=== PATIENT | female | born 1990 | race Caucasian/White ===

== ENCOUNTER 2021-07-25 22:55 | Emergency (ER) | payer OTHER, BC ==
[2021-07-25 23:07] VITALS: RESP 18
[2021-07-26] MEDS: ACETAMINOPHEN TAB 500 MG TAB PO STA (02:13)
[2021-07-26] MEDS: predniSONE 50 MG TAB PO STA (02:14)
[2021-07-26] MEDS: KETOROLAC 15 MG/ML 1 ML VIAL IM STA (02:32)
--- NOTE | 2021-07-26 02:40 | XR ---
EXAMINATION TYPE: XR chest 2V DATE OF EXAM: 07/26/2021 COMPARISON: NONE HISTORY: Cough. Chest pain TECHNIQUE: 2 views FINDINGS: Heart and mediastinum are normal. Lungs are clear. Diaphragm is normal. Bony thorax is inta ct. IMPRESSION: Normal chest.
--- NOTE | 2021-07-26 03:06 | ED ---
General Adult HPI - General Chief complaint: Chest Pain Stated complaint: Chest Pain, MELANIE Time Seen by Provider: 07/26/21 01:56 Source: patient, family Mode of arrival: wheelchair Limitations: no limitations - History of Present Illness Initial comments: 30 year-old female patient presents for chest pain. States for the last two days she has had nasal congestion, cough, and sore throat. States today she developed pressure in her chest. Denies taking anything for her symptoms. She was seen at urgent care today and tested negative for COVID. States they gave her z-eladio for bronchitis. She has not yet started this. She denies any leg pain or swelling. Denies shortness of breath. Denies increased pain with deep inspiration. She denies chance of . She has not been vaccinated for flu or covid. - Related Data Previous Rx's Medication Instructions Recorded Albuterol Sulfate [Proair Hfa] 1 - 2 puff INHALATION Q6HR PRN 07/26/21 #8.5 gm guaiFENesin-DM 600/30MG [Mucinex 2 each PO Q12HR PRN #20 tab 07/26/21 Dm] predniSONE 50 mg PO DAILY #5 tablet 07/26/21 Allergies Allergy/AdvReac Type Severity Reaction Status Date / Time No Known Allergies Allergy Verified 07/25/21 23:04 Review of Systems ROS Statement: Those systems with pertinent positive or pertinent negative responses have been documented in the HPI. ROS Other: All systems not noted in ROS Statement are negative. Past Medical History Past Medical History: No Reported History History of Any Multi-Drug Resistant Organisms: None Reported Past Surgical History: No Surgical Hx Reported Past Psychological History: Anxiety Smoking Status: Never smoker Past Alcohol Use History: None Reported Past Drug Use History: None Reported General Exam Limitations: no limitations General appearance: alert, in no apparent distress, other (This is a well- developed, well-nourished adult female in no acute distress.) ENT exam: Present: normal exam, normal oropharynx, mucous membranes moist Respiratory exam: Present: normal lung sounds bilaterally. Absent: respiratory distress, wheezes, rales, rhonchi, stridor Cardiovascular Exam: Present: normal rhythm, tachycardia, normal heart sounds. Absent: systolic murmur, diastolic murmur, rubs, gallop, clicks GI/Abdominal exam: Present: soft, normal bowel sounds. Absent: distended, tenderness, guarding, rebound, rigid Neurological exam: Present: alert, oriented X3, CN II-XII intact Psychiatric exam: Present: normal affect, normal mood Skin exam: Present: warm, dry, intact, normal color. Absent: rash Course Vital Signs 07/25/21 23:05 Temperature 99.0 F Pulse Rate 111 H Respiratory 18 Rate Blood Pressure 133/81 O2 Sat by Pulse 99 Oximetry EKG Findings - EKG Comments: EKG Findings:: EKG obtained at 2311 shows normal sinus rhythm with a ventricular rate of 98, DC interval 166, QRS duration 86, QT 336, QTC 428. No evidence of ST elevation or depression. Medical Decision Making - Medical Decision Making 30-year-old female patient presents to the emergency department today for evaluation of cough, congestion, chest pressure. Physical examination revealed clear equal lung sounds. She tested negative for . Chest x-ray is negative. She did test positive for COVID. To be discharged home with prescription for pro-air, Mucinex, and prednisone. She is given instructions for symptom management and supportive care at home. She is instructed to follow-up with the primary care physician for recheck in 1-2 days. Return parameters were discussed in detail. She verbalizes understanding and agrees with this plan. My attending is Dr. Stiles. - Lab Data Lab Results 07/26/21 07/26/21 Range/Units 02:04 02:16 Urine HCG, Qual Not Detected (Not Detectd) Influenza Type A (PCR) Not Detected (Not Detectd) Influenza Type B (PCR) Not Detected (Not Detectd) RSV (PCR) Not Detected (Not Detectd) SARS-CoV-2 (PCR) Detected A (Not Detectd) - Radiology Data Radiology results: report reviewed, image reviewed Two-view x-ray of the chest is obtained. Report was reviewed in its entirety. Impression by Dr. Cabral shows normal chest. Disposition Clinical Impression: COVID-19 Disposition: HOME SELF-CARE Condition: Good Instructions (If sedation given, give patient instructions): Coronavirus Disease 2019 (COVID-19) Additional Instructions: Tips to help you feel better: -Maintain adequate fluid intake - especially water. -Rest, you are healing your body will require extra sleep. -Eat even if you do not feel like it - broth, jello, toast are fine if you cannot eat full meals. -Take tylenol and motrin alternating (if you have no allergies or have not been instructed to avoid these medications) to help with body aches and fevers. -Obtain over the counter vitamin C, zinc, and vitamin D3. -Take medications as prescribed. Follow-up with your primary care physician for recheck in 1-2 days. Return for any new, worsening, or concerning symptoms. Prescriptions: guaiFENesin-DM 600/30MG [Mucinex Dm] 2 each PO Q12HR PRN #20 tab PRN Reason: Cough predniSONE 50 mg PO DAILY #5 tablet Albuterol Sulfate [Proair Hfa] 1 - 2 puff INHALATION Q6HR PRN #8.5 gm PRN Reason: Shortness Of Breath Is patient prescribed a controlled substance at d/c from ED?: No Referrals: Linda Hernandez MD [Primary Care Provider] - 1-2 days Time of Disposition: 03:13
[2021-07-26 03:22] VITALS: BP 100/65; PULSE 78; TEMP 98.7
== END 2021-07-26 03:22 | disposition home or self-care (01) ==
LOC: EC 22:55
DX: U07.1 COVID-19 (principal)
CPT/HCPCS: 99285; 96372; 93005; 81025; 87636; 71046; J1885; J7512

== ENCOUNTER → 2021-08-20 | Outpatient (CLI) | payer BC ==
--- NOTE | 2021-08-20 23:30 | XR ---
EXAMINATION TYPE: XR chest 2V DATE OF EXAM: 08/20/2021 COMPARISON: 07/26/2021 HISTORY: 30-year-old female [id number], acute bronchitis. TECHNIQUE: Frontal and lateral views FINDINGS: The cardiomediastinal silhouette, aorta, and pulmonary vasculature are within normal limits. Lungs an d pleural spaces are clear. IMPRESSION: No acute cardiopulmonary process.
== END | disposition home or self-care (01) ==
LOC: RADXRYALE 15:11
PROVIDERS: ATTEND Internal Medicine
DX: J20.8 Acute bronchitis due to other specified organisms (principal)
CPT/HCPCS: 71046

== ENCOUNTER 2023-11-25 09:17 | Emergency (ER) | payer OTHER, BC ==
--- NOTE | 2023-11-25 10:04 | ED ---
General Adult HPI - General Chief complaint: Vaginal Bleeding Stated complaint: 9wks preg/bleeding Time Seen by Provider: 11/25/23 09:20 Source: patient, RN notes reviewed, old records reviewed Mode of arrival: ambulatory Limitations: no limitations - History of Present Illness Initial comments: This is a 33-year-old female who presents to the emergency department stating that she is 9 weeks 5 days and she had an IVF. Patient states she started bleeding about a week ago she saw her OB last week and they did an ultrasound and they saw a small bleed. Patient states that her OB told her to continue with less activity and follow-up if the bleeding gets heavier. Patient states the bleeding stopped and then restarted on Thursday but only a little but today she did soak through a pad it so she decided to come to the emergency department. Patient states she has an occasional cramp but she has had that all throughout her . Patient denies any fever or chills. Patient states they just waldemar blood work last week and she has a positive. Patient denies any fever chills patient denies any other problems. - Related Data Previous Rx's Medication Instructions Recorded Albuterol Sulfate [Proair Hfa] 1 - 2 puff INHALATION Q6HR PRN 07/26/21 #8.5 gm guaiFENesin-DM 600/30MG [Mucinex 2 each PO Q12HR PRN #20 tab 07/26/21 Dm] predniSONE 50 mg PO DAILY #5 tablet 07/26/21 Allergies Allergy/AdvReac Type Severity Reaction Status Date / Time No Known Allergies Allergy Verified 11/25/23 09:21 Review of Systems ROS Statement: Those systems with pertinent positive or pertinent negative responses have been documented in the HPI. ROS Other: All systems not noted in ROS Statement are negative. Past Medical History Past Medical History: No Reported History History of Any Multi-Drug Resistant Organisms: None Reported Past Surgical History: No Surgical Hx Reported Past Psychological History: Anxiety Smoking Status: Never smoker Past Alcohol Use History: None Reported Past Drug Use History: None Reported General Exam - General Exam Comments Initial Comments: GENERAL: Patient is well-developed and well-nourished. Patient is nontoxic and well- hydrated and is in no acute distress. ENT: Neck is soft and supple. No significant lymphadenopathy is noted. Oropharynx is clear. Moist mucous membranes. EYES: Extraocular movements were intact and pupils were equal round and reactive to light. Eyelids were unremarkable. ABDOMEN: Soft and nontender with normal bowel sounds. SKIN: Skin is clear with no lesions or rashes and otherwise unremarkable. NEUROLOGIC: Patient is alert and oriented x3. Cranial nerves II through XII are grossly intact. Motor and sensory are also intact. Normal speech, volume and content. Symmetrical smile. MUSCULOSKELETAL: Normal extremities with adequate strength and full range of motion. PSYCHIATRIC: Normal psychiatric evaluation. Limitations: no limitations Course Vital Signs 11/25/23 09:17 Temperature 97.8 F Pulse Rate 84 Respiratory 16 Rate Blood Pressure 157/105 O2 Sat by Pulse 100 Oximetry Medical Decision Making - Medical Decision Making Was pt. sent in by a medical professional or institution (, PA, HELPER MARBLE FINISHER, urgent care, hospital, or usp...) When possible be specific @ -No Did you speak to anyone other than the patient for history (EMS, parent, family, police, friend...)? What history was obtained from this source @ -No Did you review nursing and triage notes (agree or disagree)? Why? @ -I reviewed and agree with nursing and triage notes Were old charts reviewed (outside hosp., previous admission, EMS record, old EKG, old radiological studies, urgent care reports/EKG's, usp records)? Report findings @ -No old charts were reviewed Differential Diagnosis (chest pain, altered mental status, abdominal pain women, abdominal pain men, vaginal bleeding, weakness, fever, dyspnea, syncope, headache, dizziness, GI bleed, back pain, seizure, CVA, palpatations, mental health, musculoskeletal)? @ -Threatened , miscarriage, incomplete miscarriage, chronic hemorrhage, this is not an all-inclusive list EKG interpreted by me (3pts min.). @ -As above X-rays interpreted by me (1pt min.). @ -None done CT interpreted by me (1pt min.). @ -None done U/S interpreted by me (1pt. min.). @ -Ultrasound shows a 9-week 4-day gestational with a subchorionic hemorrhage. Heart rate is 167 What testing was considered but not performed or refused? (CT, X-rays, U/S, labs)? Why? @ -None What meds were considered but not given or refused? Why? @ -None Did you discuss the management of the patient with other professionals (professionals i.e. , PA, HELPER MARBLE FINISHER, lab, RT, psych nurse, social media job titles, nut picker, teacher, court registry officer, case planner)? Give summary @ -No Was smoking cessation discussed for >3mins.? @ -No Was critical care preformed (if so, how long)? @ -No Were there social determinants of health that impacted care today? How? (Homelessness, low income, unemployed, alcoholism, drug addiction, transportation, low edu. Level, literacy, decrease access to med. care, prison, rehab)? @ -No Was there de-escalation of care discussed even if they declined (Discuss DNR or withdrawal of care, Hospice)? DNR status @ -No What co-morbidities impacted this encounter? (DM, HTN, Smoking, COPD, CAD, Cancer, CVA, ARF, Chemo, Hep., AIDS, mental health diagnosis, sleep apnea, morbi d obesity)? @ -None Was patient admitted / discharged? Hospital course, mention meds given and route, prescriptions, significant lab abnormalities, going to OR and other pertinent info. @ -Patient's ultrasound showed intrauterine 9 weeks 4 days there was also subchorionic hemorrhage. Patient will be instructed to follow-up today with her ROLLER SKATE ASSEMBLER. Undiagnosed new problem with uncertain prognosis? @ -No Drug Therapy requiring intensive monitoring for toxicity (Heparin, Nitro, Insulin, Cardizem)? @ -No Were any procedures done? @ -No Diagnosis/symptom? @ -Threatened Acute, or Chronic, or Acute on Chronic? @ -Acute Uncomplicated (without systemic symptoms) or Complicated (systemic symptoms)? @ -Complicated Side effects of treatment? @ -No Exacerbation, Progression, or Severe Exacerbation? @ -No Poses a threat to life or bodily function? How? (Chest pain, USA, MS, pneumonia, PE, COPD, DKA, ARF, appy, cholecystitis, CVA, Diverticulitis, Homicidal, Suicidal, threat to staff... and all critical care pts) @ -No Disposition Clinical Impression: Threatened Disposition: HOME SELF-CARE Condition: Good Additional Instructions: Call your ROLLER SKATE ASSEMBLER today and let him know that you are having some bleeding and you were seen in our emergency department. Is patient prescribed a controlled substance at d/c from ED?: No Referrals: Linda Hernandez MD [Primary Care Provider] - 1-2 days Time of Disposition: 11:21
[2023-11-25 10:42] VITALS: TEMP 97.8
--- NOTE | 2023-11-25 11:07 | US ---
EXAMINATION TYPE: Transabdominal DATE OF EXAM: 11/25/2023 10:43 AM COMPARISON: NONE CLINICAL INDICATION: Female, 33 years old with history of IVF, vaginal bleeding; IVF patient. Patient states they found a bleed on prior scan. Patient has been having dark red bleeding. Hx LEEP procedur e. . EXAM PERFORMED: Transvaginal (TV) and Transabdominal (TA) EXAM MEASUREMENTS: GESTATIONAL AGE / DATING Physician Established: (9 weeks/4 days) EDC: 06/25/2024 Dates by LMP: Unknown per patient Dates by First Scan: This is first scan at this facility Dates by Current Scan for: (9 weeks/4 days) EDC: 06/25/2024 MATERNAL ANATOMY Uterus: 12.5 x 8.0 x 6.4 cm Right Ovary: 2.8 x 1.7 x 1.6 cm Left Ovary: Not seen Post CDS / Adnexa: Free fluid seen right adnexa. Presence of free fluid: Yes in right adnexa* Presence of corpus luteal cyst: Not seen Presence of subchorionic bleed: 2 complex areas seen adjacent to the gestational sac, fundal area M easures: 1.4 x 1.7 x 2.6 cm. KENNY area measures: 1.4 x 1.5 x 1.0 cm. GESTATION / SURVEY CRL: 2.78 cm (9 weeks/4 days) Yolk Sac (normal less than 6mm): 3.8 mm Heart Rate: 167 bpm Rhythm: Normal IUP: Viable IUP Date of LMP: Unknown Beta HcG (if available): Not available IMPRESSION: 1. Single live intrauterine gestation with 9 weeks 4 days. 2. Small subchorionic hemorrhages.
[2023-11-25 12:29] VITALS: BP 120/64; PULSE 88; RESP 18
== END 2023-11-25 11:46 | disposition home or self-care (01) ==
LOC: EC 09:17
DX: O20.0 Threatened abortion (principal); Z3A.09 9 weeks gestation of pregnancy
CPT/HCPCS: 76801; 76817; 99284

== ENCOUNTER 2024-04-27 09:52 | Outpatient (CLI) | payer OTHER, BC ==
[2024-04-27 11:06] LABS: Appearance,Urine Cloudy (Clear); Bilirubin,Urine Negative (Negative); Blood,Urine Small (Negative); Color,Urine Light Yellow; Glucose,Urine (UA) Negative (Negative); Ketones,Urine Negative (Negative); Leukocyte Esterase,Urine Moderate (Negative); Mucus,Urine Occasional /hpf; Nitrite,Urine Negative (Negative); PH, Urine 6.5 (5.0-8.0); Protein,Urine Trace (Negative); RBC,Urine 47 /hpf (0-5); Specific Gravity,Urine 1.017 (1.001-1.035); Squamous Epithelial Cell,Urine 6 /hpf (0-4); Urobilinogen,Urine <2.0 mg/dL (<2.0); WBC,Urine 14 /hpf (0-5)
[2024-04-27] MEDS: ACETAMINOPHEN IV (For NPO) 1,000 MG in EMPTY BAG 1 BAG IVPB STA (11:38)
[2024-04-27] MEDS: LACTATED RINGERS 1,000 ML IV ONE (11:38)
[2024-04-27 12:39] VITALS: BP 121/81; PULSE 110; RESP 16; TEMP 97.5
--- NOTE | 2024-05-05 09:03 | P.MSEPDOC ---
Presenting Problems - Arrival Data Date of Arrival on Unit: 04/27/24 Time of Arrival on Unit: 09:52 Mode of Transport: Wheelchair - Complaint OB-Reason for Admission/Chief Complaint: Pain Comment: cramping and right side back pain, 10 on 0-10 scale Medical History - Information : 1 Para: 0 Term: 0 : 0 Abortions: Spontaneous or Elective: 0 Number of Living Children: 0 - Gestational Age Gestational Age by AISHA (wks/days): 31 Weeks and 4 Days - History Complications: Placenta Previa Comment: placenta previa resolved, hx kidney stone Review of Systems - Review of Systems Constitutional: No problems Breast: No problems ENT: No problems Cardiovascular: No problems Respiratory: No problems Gastrointestinal: No problems Genitourinary: No problems Musculoskeletal: No problems Neurological: No problems Skin: No problems Vital Signs - Temperature Temperature: 97.5 F Temperature Source: Temporal Artery Scan - Pulse Right Sitting Pulse Rate: 110 Pulse Assessment Method: Automatic Cuff - Respirations Respiratory Rate: 16 Oxygen Delivery Method: Room Air O2 Sat by Pulse Oximetry: 100 - Blood Pressure Right Arm Blood Pressure: 121/81 Blood Pressure Mean: 94 Blood Pressure Source: Automatic Cuff Medical Screen Scoring - Assessment - Baby A Baseline FHR: 135 Heart Rate - NICHD Category: Category I (Normal) NST: Reactive Physician Notification - Physician Notified Physician Notified Date: 04/27/24 Physician Notified Time: 12:20 Physician: Lona Tyler Order Received: Yes (d/c home) Maternal Triage Index - Non-Urgent/Priority 4 Non-Urgent Priority 4: Yes Criteria Met for Priority 4: reactive nst, occasional contraction not felt by pt, possible kideny stone Disposition - Disposition OB Disposition: Discharge to home Discharge Date: 04/27/24 Discharge Time: 12:30 I agree with the RN Medical Screening Exam: Yes Physician's MSE Comment: I have neither seen nor examined the patient Case reviewed; plan agreed upon as documented in EMR&OBIX.: Yes Diagnosis: RELATED CONDITIONS, UNSPECIFIED, THIRD TRIMESTER
== END 2024-04-27 12:30 | disposition home or self-care (01) ==
LOC: FBPOP 09:52
PROVIDERS: ATTEND Obstetrics & Gynecology
CPT/HCPCS: 59025; 81001; 87086; 96365; 99214

== ENCOUNTER 2024-04-27 20:38 | Outpatient (CLI) | payer OTHER, BC ==
[2024-04-27 21:01] VITALS: PULSE 105; RESP 20; TEMP 97.9
[2024-04-27 22:20] VITALS: BP 120/68
--- NOTE | 2024-05-05 09:03 | P.MSEPDOC ---
Presenting Problems - Arrival Data Date of Arrival on Unit: 04/27/24 Time of Arrival on Unit: 20:38 Mode of Transport: Wheelchair - Complaint OB-Reason for Admission/Chief Complaint: Pain, Other Comment: Patient presents to triage with complaints of R flank pain, burning/pain with urination. Medical History - Information : 1 Para: 0 Term: 0 : 0 Abortions: Spontaneous or Elective: 0 Number of Living Children: 0 - Gestational Age Gestational Age by AISHA (wks/days): 31 Weeks and 4 Days - History Complications: Other Comment: IVF Review of Systems - Review of Systems Constitutional: No problems Breast: No problems ENT: No problems Cardiovascular: No problems Respiratory: No problems Gastrointestinal: No problems Genitourinary: Urgency, Increased frequency Musculoskeletal: No problems Neurological: No problems Skin: No problems Comment: Patient presents to triage with complaints of R flank pain, burning/pain with urination. Vital Signs - Temperature Temperature: 97.9 F Temperature Source: Temporal Artery Scan - Pulse Pulse Oximetery Pulse Rate: 105 Pulse Assessment Method: Pulse Oximetry - Respirations Respiratory Rate: 20 Oxygen Delivery Method: Room Air O2 Sat by Pulse Oximetry: 97 - Blood Pressure Right Arm Blood Pressure: 120/68 Blood Pressure Mean: 85 Blood Pressure Source: Automatic Cuff Medical Screen Scoring - Assessment - Baby A Baseline FHR: 145 Heart Rate - NICHD Category: Category I (Normal) NST: Reactive Physician Notification - Physician Notified Physician Notified Date: 04/27/24 Physician Notified Time: 21:08 Physician: Lona Tyler New Order Received: Yes (Dr. Tyler ordered IVP morphine and continuous monitoring for 4 h) - Notification Comment Comment: Dr. Tyler ordered IVP morphine and continuous monitoring for 4 hours. Patient informed she cannot have tylenol at this time because her last dose was around 1700 at home PO. RN offered the IV morphine with continuous monitoring of FHR. Patient refuses morphine at this time. Maternal Triage Index - Maternal Triage Index Presenting for scheduled procedure w/no complaint: No - Stat/Priority 1 Stat Priority 1: No - Urgent/Priority 2 Urgent Priority 2: Yes Provider Notified: Lona Tyler Provider Notified Time: 21:08 Criteria Met for Priority 2: RN reported on maternal and status. Reactive NST, stable maternal vitals, no contractions. Pt. complaints of R flank pain, burning when urination. Patient denies vaginal bleeding/leaking fluid. Abdomen soft and nontender upon palpation. RN reports that patient took PO tylenol around 1700. Disposition - Disposition OB Disposition: Discharge to home Discharge Date: 04/27/24 Discharge Time: 21:21 I agree with the RN Medical Screening Exam: Yes Physician's MSE Comment: I have neither seen nor examined the patient Case reviewed; plan agreed upon as documented in EMR&OBIX.: Yes Diagnosis: RELATED CONDITIONS, UNSPECIFIED, THIRD TRIMESTER
== END 2024-04-27 21:21 | disposition home or self-care (01) ==
LOC: FBPOP 20:38
PROVIDERS: ATTEND Obstetrics & Gynecology
CPT/HCPCS: 59025; 99213